=== PATIENT | male | born 1990 | race African-American/Black ===

== ENCOUNTER → 2020-04-12 | Outpatient (CLI) | payer SELFPAY ==
--- NOTE | 2020-04-12 15:03 | RADIOLOGY REPORT (SQ) ---
EXAM DESCRIPTION: CERV SP 3 VIEW OR LESS IMAGES COMPLETED DATE/TIME: 04/12/2020 1:11 pm REASON FOR STUDY: S12.391D OTH NONDISP FX OF 4TH CERVCAL VERT, SUBS FOR FX W ROUTN HEAL S12.391D OT H NONDISP FX OF 4TH CERVCAL VERT, SUBS FOR FX W R S13.4XXD SPRAIN OF LIGAMENTS OF CERVICAL SPINE, ADKINS BSEQUENT E COMPARISON: None. TECHNIQUE: Lateral flexion and extension radiographs of the spine. NUMBER OF VIEWS: Two views. LIMITATIONS: None. FINDINGS: There is grade 1 anterolisthesis of C4 on C5 in flexion. This is grossly stable in extens ion. Very slight anterolisthesis of C6 on C7 in flexion. Mild posterior translation of C6 on C7 and extension. OTHER: No other significant finding. IMPRESSION: Grade 1 anterolisthesis of C4 on C5 without evidence of abnormal motion on flexion or ex tension views. There is slight there is grade 1 anterolisthesis of C6 on C7 in flexion. There is sl ight posterior translation of C6 on C7 and extension. A neutral film was not obtained. TECHNICAL DOCUMENTATION: JOB ID: [id number] 2010 [employer]- All Rights Reserved Reading location - IP/workstation name: [email or web address]
== END ==
LOC: RAD 12:31
DX: S12.391D Other nondisplaced fracture of fourth cervical vertebra, subsequent encounter for fracture with routine healing (principal); X58.XXXD Exposure to other specified factors, subsequent encounter
CPT/HCPCS: 72040